=== PATIENT | female | born 1980 | race Caucasian/White ===

== ENCOUNTER 2018-05-17 15:23 | Emergency (ER) | payer OTHER ==
[~2018-05-17] VITALS: Ht 162.6 cm; Wt 87.1 kg
[~2018-05-17 15:23] MED LIST: NAPROSYN500 MG PO; PENICILLIN V P500 MG PO; ULTRAM 50MG TAB50 MG PO
[2018-05-17 15:53] LABS: URINE CLARITY CLEAR; URINE COLOR YELLOW; URINE PROTEIN (DIPSTICK) NEGATIVE (Negative)
[2018-05-17 15:54] LABS: URINE BILIRUBIN NEGATIVE (Negative); URINE BLOOD NEGATIVE (Negative); URINE GLUCOSE-RANDOM* NEGATIVE (Negative); URINE KETONES NEGATIVE (Negative); URINE LEUKOCYTES-REFLEX 3+ (Negative); URINE NITRITE-REFLEX NEGATIVE (Negative); URINE UROBILINOGEN 0.2 E.U./dl (0.2-1.0)
[2018-05-17 16:04] LABS: AMORPHOUS PHOSPHATES Few /LPF (None Seen); BACTERIA-REFLEX None Seen /HPF (None Seen); CASTS None Seen /LPF (None Seen); SQUAMOUS >10 Many /LPF (0-3); URINE RBC 0-2 Rare /HPF (0-2); URINE WBC-REFLEX >25 Many /HPF (0-5)
[2018-05-17] MEDS ORDERED: TRAMADOL 50 MG50 MG PO (16:16)
[2018-05-17] MEDS ORDERED: FLEXERIL PO (16:16)
[2018-05-17] MEDS ORDERED: KEFLEX500 M1 PO (16:16)
[2018-05-17] MEDS ORDERED: MEDROLDOSEPACK PO (16:16)
[2018-05-17 16:51] VITALS: BP 132/86
== END 2018-05-17 16:53 | disposition home or self-care (01) ==
LOC: ER 15:23
PROVIDERS: Emergency Medicine
DX: M54.41 Lumbago with sciatica, right side (principal); N39.0 Urinary tract infection, site not specified; V89.2XXA Person injured in unspecified motor-vehicle accident, traffic, initial encounter; Y92.89 Other specified places as the place of occurrence of the external cause; Y93.89 Activity, other specified; Y99.8 Other external cause status